=== PATIENT | female | born 1990 | race Hispanic/Latino ===

== ENCOUNTER 2017-07-29 15:49 | Emergency (ER) | payer BC, OTHER ==
[2017-07-29 15:57] VITALS: BP 133/85; PULSE 80; RESP 18; TEMP 97.4; O2SAT 100
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
== END 2017-07-29 18:54 | disposition home or self-care (01) ==
LOC: H.ER 15:49
DX: M54.9 Dorsalgia, unspecified (principal); V43.62XA Car passenger injured in collision with other type car in traffic accident, initial encounter; Z88.0 Allergy status to penicillin